=== PATIENT | male | born 1985 | race African-American/Black ===

== ENCOUNTER 2019-07-25 13:25 | Emergency (ER) | payer SELFPAY ==
[2019-07-25] MEDS ORDERED: diphenhydrAMINE 50 MG/ML VIAL ONE (15:05)
[2019-07-25] MEDS ORDERED: Ketorolac Tromethamine 30 MG/ML VIAL ONE (15:05)
[2019-07-25] MEDS ORDERED: Metoclopramide HCl 10 MG/2 ML VIAL ONE (15:09)
== END 2019-07-25 17:26 | disposition home or self-care (01) ==
LOC: ERS 13:25
DX: R51 Headache (principal); I10 Essential (primary) hypertension; F17.210 Nicotine dependence, cigarettes, uncomplicated
CPT/HCPCS: 96365; 96366; 96375; J1200; J1885; J2765

== ENCOUNTER 2019-09-24 03:50 | Emergency (ER) | payer SELFPAY ==
[2019-09-24] MEDS ORDERED: Dexamethasone 10 MG/ML VIAL ONE (03:59)
[2019-09-24] MEDS ORDERED: diphenhydrAMINE 25 MG CAP ONE (03:59)
== END 2019-09-24 05:12 | disposition home or self-care (01) ==
LOC: ERS 03:50
DX: S00.462A Insect bite (nonvenomous) of left ear, initial encounter (principal); S00.561A Insect bite (nonvenomous) of lip, initial encounter; W57.XXXA Bitten or stung by nonvenomous insect and other nonvenomous arthropods, initial encounter
CPT/HCPCS: J1100; Q0163

== ENCOUNTER 2019-12-14 09:26 | Emergency (ER) | payer SELFPAY ==
[2019-12-14] MEDS ORDERED: Acetaminophen 500 MG TAB ONE (09:42)
[2019-12-14] MEDS ORDERED: Metoclopramide HCl 10 MG/2 ML VIAL ONE (09:43)
[2019-12-14] MEDS ORDERED: diphenhydrAMINE 50 MG/ML VIAL ONE (09:43)
--- NOTE | 2019-12-14 10:42 | CT ---
CT BRAIN PERFORMED WITHOUT CONTRAST ENHANCEMENT: Date: 12/14/2019 HISTORY: Headache. COMPARISON: 06/01/16 study. FINDINGS: The ventricular and cisternal system is within normal limits. There are no signs of intracerebral hem orrhage or extra-axial fluid collections. The mastoid air cells and visualized sinuses are clear. IMPRESSION: No acute intracranial abnormalities. POS: [facility]
[2019-12-14] MEDS ORDERED: Magnesium 2 GM/50 ML BAG (IN WATER) ONE (12:22)
[2019-12-14] MEDS ORDERED: Ketorolac Tromethamine 30 MG/ML VIAL ONE (12:22)
== END 2019-12-14 13:30 | disposition home or self-care (01) ==
LOC: ERS 09:26
DX: R51 Headache (principal); F17.200 Nicotine dependence, unspecified, uncomplicated
CPT/HCPCS: 70450; 96365; 96366; 96367; 96375; J1200; J1885; J2765; J3475

== ENCOUNTER 2019-12-22 09:30 | Emergency (ER) | payer SELFPAY ==
[2019-12-22] MEDS ORDERED: Dexamethasone 4 mg/ml Vial ONE ×2 (10:18→10:19)
[2019-12-22] MEDS ORDERED: diphenhydrAMINE 50 MG/ML VIAL ONE (10:19)
[2019-12-22] MEDS ORDERED: Metoclopramide HCl 10 MG/2 ML VIAL ONE (10:19)
[2019-12-22] MEDS ORDERED: Acetaminophen 500 MG TAB ONE (11:53)
[2019-12-22] MEDS ORDERED: Ketorolac Tromethamine 30 MG/ML VIAL ONE (11:53)
[2019-12-22] MEDS ORDERED: Magnesium 2 GM/50 ML BAG (IN WATER) ONE (11:53)
== END 2019-12-22 13:08 | disposition home or self-care (01) ==
LOC: ERS 09:30
DX: R51 Headache (principal); I10 Essential (primary) hypertension
CPT/HCPCS: 96365; 96367; 96375; J1100; J1200; J1885; J2765; J3475

== ENCOUNTER 2020-07-03 13:39 | Emergency (ER) | payer SELFPAY | END 2020-07-03 14:57 | disposition home or self-care (01) | LOC: ERS 13:39 | DX: T78.40XA Allergy, unspecified, initial encounter (principal); I10 Essential (primary) hypertension; X58.XXXA Exposure to other specified factors, initial encounter | CPT/HCPCS: 99283 ==

== ENCOUNTER 2020-07-29 09:45 | Inpatient (IN) | payer OTHER, SELFPAY ==
[2020-07-29] MEDS ORDERED: Diazepam 10 MG/2 ML SYRINGE ONE (10:17)
[2020-07-29 10:44] LABS: #Basophils 0.1 thou/uL (0.0-0.2); #Monocytes 1.1 thou/uL (0.11-0.59); #Neutrophils 9.5 thou/uL (1.40-6.50); %Basophils 0.5 % (0.0-1.0); %Eosinophils 0.3 % (0.0-10.0); %Lymphocytes 15.6 % (21.0-51.0); %Monocytes 8.8 % (0.0-10.0); %Neutrophils 74.8 % (42.0-75.0); Hemoglobin 15.5 g/dL (14.0-18.0); Mean Corpuscular HGB CONC 33.9 g/dL (32.0-36.0); Mean Corpuscular Hemoglobin 31.3 pg (27.0-31.0); Mean Corpuscular Volume 92.4 fL (78.0-98.0); Mean Platelet Volume 8.3 fL (7.4-10.4); Platelet Count 231 thou/uL (130-400); RBC Distribution Width 12.5 % (11.5-14.5); Red Blood Cell (RBC) Count 4.95 mill/uL (4.70-6.10); White Blood Cell (WBC) Count 12.7 thou/uL (4.8-10.8)
[2020-07-29 10:54] LABS: ALT (SGPT) 25 U/L (8-55); AST (SGOT) 19 U/L (5-34); Albumin 4.7 g/dL (3.5-5.0); Alkaline Phosphatase 47 U/L (40-110); Anion Gap 23 mmol/L (10-20); BUN (Urea Nitrogen) 24 mg/dL (8.9-20.6); Bilirubin, Total 0.5 mg/dL (0.2-1.2); CK (CPK) 674 U/L (30-200); Calc. Creatinine Clearance 0 mL/min (70-130); Calcium 9.6 mg/dL (7.8-10.44); Carbon Dioxide 13 mmol/L (22-29); Chloride 107 mmol/L (98-107); Estimated GFR-MDRD 34; Globulin 2.7 g/dL (2.4-3.5); Glucose 112 mg/dL (70-105); Protein, Total 7.4 g/dL (6.0-8.3); Sodium 139 mmol/L (136-145)
[2020-07-29 11:31] LABS: Bilirubin Negative (Negative); Blood, Urine Trace (Negative); Clarity Turbid (Clear); Glucose, Urine (Dipstick) Normal (Negative); Ketone, Urine 10 mg/dL (Negative); Leukocyte 75 Leu/uL (Negative); Nitrite Negative (Negative); Protein, Urine (Dipstick) 50 mg/dL (Neg-Trace); RBC/HPF 0-3 HPF (0-3); Specific Gravity, Urine 1.028 (1.002-1.036); Squamous Epithelial 0-3 HPF (0-3); Urobilinogen Normal mg/dL (Less than 2); pH, Urine 5.5 (5.0-9.0)
[2020-07-29 11:35] LABS: Bacteria/HPF 1+ HPF (None Seen)
[2020-07-29 11:40] LABS: Band 1 % (5-11); Eosinophils 2 % (0-10); Lymphocytes 36 % (21-51); MDiff Complete? YES; Monocytes 9 % (0-10); Neutrophil 53 % (42-75); Nucleated RBC 1 % (0); RBC Morphology Normal
[2020-07-29] MEDS ORDERED: cefTRIAXone\\ROCEPHIN 1 GM VIAL ONE (11:54)
[2020-07-29] MEDS ORDERED: Ondansetron PF 4 MG/2 ML Vial ONE (12:20)
[2020-07-29 13:20] LABS: Lactic Acid 1.5 mmol/L (0.5-2.2)
[2020-07-29] MEDS ORDERED: Ondansetron PF 4 MG/2 ML Vial IVP PRN (14:37)
[2020-07-29] MEDS ORDERED: hydrALAZINE 20 MG/ML VIAL SLOW IVP PRN (14:37)
[2020-07-29] MEDS ORDERED: Acetaminophen 325 MG TAB PO PRN ×2 (14:37)
[2020-07-29] MEDS ORDERED: Ondansetron ODT 4 MG TAB SL PRN (14:37)
[2020-07-29] MEDS ORDERED: Lactated Ringer's 1,000 ML IV SCH (14:45)
[2020-07-29] MEDS: Lactated Ringer's 1,000 ML IV SCH ×2 (15:23→23:09)
[2020-07-29 15:31] VITALS: BMI 35.6
[2020-07-29 16:43] LABS: SARS-CoV-2 MS2 Positive; SARS-CoV-2 N Gene Negative; SARS-CoV-2 S Gene Negative; SARS-CoV-2 by NAA Not Detected (NotDetected); SARS-CoV-2 orf1ab Negative
[2020-07-29 18:47] LABS: Creatinine, Urine 145.33 mg/dL (63-166)
--- NOTE | 2020-07-29 19:51 | HP ---
PRIMARY CARE PHYSICIAN: The patient currently does not have a primary care physician. CHIEF COMPLAINT: "I was cramping in both of my legs and diaphoretic." HISTORY OF PRESENT ILLNESS: Mr. Nelson is a pleasant 35-year-old gentleman who has a history of hypertension. He admits that he has never followed up regularly with regard to his blood pressure. He says that he did not trust the medications that were prescribed to him. Nevertheless, in the last couple of days, he has been noticing cramping in both of his legs and then it started progressing from his legs to encompass his entire body, and when he laid down, he also noted some cramping around his chest area. He noticed some sharp pains as well. He felt like he was keeping up with his fluid intake. 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 He was working this morning and then went on break, when a state highway police officer noted that he appeared to be diaphoretic and looked ill and called an ambulance. He was brought to the hospital and was found to have an elevated creatinine and BUN, and he is being admitted for acute kidney injury, presumed secondary to dehydration. The patient denies any nausea, vomiting, or diarrhea. He denies any fever or chills. He says he had an episode where he "got dehydrated before about a year ago." He says at that time he was having lots of headaches. His girlfriend who is at the bedside says that it seems to happen when his blood pressure is high and it has been noted that his blood pressure has been high on several occasions. Otherwise, the patient has no other complaints. REVIEW OF SYSTEMS: All systems were reviewed and are negative except for that mentioned in the history of present illness. PAST MEDICAL HISTORY: Significant for hypertension as well as anxiety. PAST SURGICAL HISTORY: Negative. ALLERGIES: NO KNOWN DRUG ALLERGIES. SOCIAL HISTORY: He is engaged. He has no children. He says he used to smoke about a pack a day, now he says he only smokes a couple of cigarettes every now and then. He denies any alcohol use. He works in an in a warehouse as previously mentioned. MEDICATIONS: None. FAMILY HISTORY: Significant for hypertension in his father as well as diabetes runs in the family as well. PHYSICAL EXAMINATION: GENERAL: He is alert and oriented. He appears to be in no acute distress. He is well developed and well nourished. VITAL SIGNS: Blood pressure was 128/86, heart rate 76, respiratory rate of 16, and he is afebrile. HEENT: Pupils are equal, round, and reactive. Extraocular muscles are intact. His sclerae anicteric. Throat, no erythema and no exudates. NECK: No adenopathy. No bruits. LUNGS: Clear to auscultation. There is no wheezing, no rales, and no rhonchi. CARDIOVASCULAR: He has a normal S1 and S2. No S3 or S4. No murmurs, clicks, or rubs. ABDOMEN: Soft, nontender, and nondistended. Positive for bowel sounds. There is no rebound, no guarding, no organomegaly. EXTREMITIES: There is no clubbing or cyanosis. No edema. No calf tenderness. No joint effusions. NEUROLOGIC: The exam is nonfocal. LABORATORY RESULTS: White blood cell count is 12.7, hemoglobin 15.5, hematocrit is 45.8, and platelet count is 231. Sodium 139, potassium 4.0, chloride is 107, CO2 is 13, BUN of 24, and creatinine 2.62. Urinalysis is noted for 1+ bacteria and greater than 50 hyaline cast. ASSESSMENT AND PLAN: 1. This is a pleasant 35-year-old gentleman who presents to the emergency room with what appears to be acute kidney injury due to volume depletion. However, there is some concern that he could have chronic kidney disease due to uncontrolled hypertension as well. It is noted that several years ago his creatinine was elevated at 1.49 back in 2016, and his BUN to creatinine ratio does not suggest a prerenal picture. However, hopefully, this is due to volume depletion. The plan will be to place him on the medical floor. Start him on IV hydration and reassess his creatinine in the a.m. We will also go ahead and get urine electrolytes to calculate a fractional excretion of sodium and renal ultrasound as well. 2. Hypertension. The patient stated he had been prescribed clonidine in the past. We will consider a neutral medications, such as amlodipine or carvedilol, given he seems to be prone to dehydration, and therefore, we will hold off on any CICI inhibitors or angiotensin receptor blockers at this time. He has been counseled on the need for compliance with blood pressure medications and the dangers of uncontrolled hypertension. Job ID: [id number]
--- NOTE | 2020-07-30 08:16 | ULT ---
Renal sonogram HISTORY: Acute renal insufficiency. FINDINGS: Right kidney is 10.0 cm length and the left is 10.4 cm. Each has a normal appearance without mass, st one, or hydronephrosis. Urinary bladder is incompletely distended. IMPRESSION : No abnormalities are demonstrated.
[2020-07-30 08:40] LABS: Anion Gap 14 mmol/L (10-20); BUN (Urea Nitrogen) 19 mg/dL (8.9-20.6); Calc. Creatinine Clearance 114 mL/min (70-130); Calcium 8.9 mg/dL (7.8-10.44); Carbon Dioxide 21 mmol/L (22-29); Chloride 108 mmol/L (98-107); Estimated GFR-MDRD 64; Glucose 110 mg/dL (70-105); Potassium 3.6 mmol/L (3.5-5.1); Sodium 139 mmol/L (136-145)
[2020-07-30] MEDS ORDERED: Famotidine 20 MG TAB PO SCH (09:00)
[2020-07-30] MEDS: Lactated Ringer's 1,000 ML IV SCH (09:09)
[2020-07-30 09:45] LABS: #Basophils 0.1 thou/uL (0.0-0.2); #Eosinphils 0.3 thou/uL (0.0-0.7); #Lymphocytes 4.4 thou/uL (1.20-3.40); #Monocytes 0.9 thou/uL (0.11-0.59); #Neutrophils 4.5 thou/uL (1.40-6.50); %Basophils 0.8 % (0.0-1.0); %Eosinophils 2.7 % (0.0-10.0); %Lymphocytes 43.1 % (21.0-51.0); %Monocytes 8.8 % (0.0-10.0); %Neutrophils 44.6 % (42.0-75.0); Mean Corpuscular HGB CONC 32.5 g/dL (32.0-36.0); Mean Corpuscular Hemoglobin 30.6 pg (27.0-31.0); Mean Platelet Volume 8.7 fL (7.4-10.4); Platelet Count 205 thou/uL (130-400); RBC Distribution Width 12.4 % (11.5-14.5); Red Blood Cell (RBC) Count 4.57 mill/uL (4.70-6.10); White Blood Cell (WBC) Count 10.1 thou/uL (4.8-10.8)
[2020-07-30 11:23] VITALS: BP 116/82; TEMP 97.7
--- NOTE | 2020-07-30 21:54 | DIS ---
DATE OF ADMISSION: 07/29/2020 DATE OF DISCHARGE: 07/30/2020 PRIMARY CARE PHYSICIAN: The patient currently does not have a primary care physician. DISCHARGE DISPOSITION: Home. DISCHARGE DIAGNOSES: 1. Acute on chronic kidney injury. 2. Hypertension, very labile and uncontrolled. DISCHARGE MEDICATIONS: Carvedilol 3.125 mg p.o. b.i.d. IMAGING: The patient had a renal ultrasound showing normal sized kidneys, no mass or hydronephrosis. CODE STATUS: Full code. ALLERGIES: NO KNOWN DRUG ALLERGIES. HOSPITAL COURSE: Mr. Nelson is a pleasant 35-year-old gentleman, who presented to the emergency room after having cramping in his legs and was diaphoretic. He was evaluated in the ER and found to be in acute kidney injury. It was felt that this was likely as a result of volume depletion. He improved with IV hydration. I reviewed his chart and saw that he had been in the hospital back in May of 2016 and at that time, his creatinine was 1.49 and this is likely his baseline. He was told that he has some chronic kidney disease and should follow up with a it analyst once he establishes a primary care physician as this may not be related to dehydration, may not be even related to hypertension and would need close followup. He tells me that his grandmother was on dialysis and this may be some hereditary form of renal insufficiency. At the time of discharge, his blood pressure was actually fairly well controlled at 123/89 without any additional medication, but we will place him on a low- dose carvedilol in the event that he has and he has been instructed to monitor his blood pressures at home and record. Job ID: [id number]
--- NOTE | 2020-08-01 09:17 | PQF ---
CLINICAL DOCUMENTATION CLARIFICATION FORM: Dear : Andres Sosa Date / Time: 08/01/2020 Please exercise your independent, professional judgment in responding to the clarification form. Clinical indicators are provided on the bottom of this form for your review Please check appropriate box(es) to clarify if the following diagnosis has been ruled in our ruled out: Urinary tract infection [ ] Ruled in diagnosis [ ] Continue to treat [ ] Resolved [ ] Ruled out diagnosis [ ] Improving [ ] Cannot rule out diagnosis [ X ] Other diagnosis pyuria [ ] Unable to determine In addition, please specify: Present on Admission (POA): [ X ] Yes [ ] No [ ] Unable to determine To be completed by CDI/Coding staff for physician review: Present Clinical Indicators - Signs / Symptoms / Labs Results and Location in Medical Record [ x ] His urinalysis surprisingly demonstrated a possible urinary tract infection, although patient was not having symptoms, we will treat him with Rocephin. Patient had urine cultures and blood cultures ED Provider notes [ x ] WBC is 12.7 on 07/29. Lactic acid is 6.4 on 07/29 Laboratory Present Risk Factors Results and Location in Medical Record [ x ] Acute kidney injury, dehydration and hypertension H&P Present Treatments Results and Location in Medical Record [ x ] IV Rocephin 07/29 Medications [ x ] Urine culture 07/29 Microbiology CDS/[employer]pper Signature: [facility] Phone #: Date/Time: 08/01/2020 This is a permanent part of the Medical Record [facility]
--- NOTE | 2020-08-02 13:40 | EKG ---
Test Reason : Blood Pressure : / mmHG Vent. Rate : 103 BPM Atrial Rate : 103 BPM P-R Int : 104 ms QRS Dur : 086 ms QT Int : 366 ms P-R-T Axes : -05 069 012 degrees QTc Int : 479 ms Sinus tachycardia with short MA Otherwise normal ECG Confirmed by LOLIS MORRISON DO ([id number]), map editor NOVA LUCAS ([id number]) on 08/02/2020 1:40:14 PM Referred By: Confirmed By:LOLIS MORRISON DO
== END 2020-07-30 13:13 | disposition home or self-care (01) | DRG 684 ==
LOC: ERS 09:45 → T4-B 11:57
PROVIDERS: ADMIT Internal Medicine; ATTEND Internal Medicine
DX: N17.9 Acute kidney failure, unspecified (principal); Z20.828 Contact with and (suspected) exposure to other viral communicable diseases; F17.210 Nicotine dependence, cigarettes, uncomplicated; E86.0 Dehydration; I12.9 Hypertensive chronic kidney disease with stage 1 through stage 4 chronic kidney disease, or unspecified chronic kidney disease; N18.9 Chronic kidney disease, unspecified; R82.81 Pyuria
CPT/HCPCS: 36415; 76770; 80048; 80053; 81003; 81015; 82550; 82570; 83605; 84300; 84484; 84540; 85025; 87040; 87086; 87635; 93005; 96361; 96365; 96375; J0696; J2405; J3360; U0003

== ENCOUNTER 2020-09-18 03:49 | Emergency (ER) | payer SELFPAY ==
[2020-09-18] MEDS ORDERED: Acetaminophen 500 MG TAB ONE (04:08)
[2020-09-18 04:44] LABS: #Basophils 0.1 thou/uL (0.0-0.2); #Eosinphils 0.2 thou/uL (0.0-0.7); #Lymphocytes 3.5 thou/uL (1.20-3.40); #Monocytes 0.7 thou/uL (0.11-0.59); #Neutrophils 2.7 thou/uL (1.40-6.50); %Basophils 1.6 % (0.0-1.0); %Eosinophils 2.3 % (0.0-10.0); %Lymphocytes 48.5 % (21.0-51.0); %Monocytes 10.1 % (0.0-10.0); %Neutrophils 37.6 % (42.0-75.0); Hemoglobin 15.5 g/dL (14.0-18.0); Mean Corpuscular HGB CONC 34.7 g/dL (32.0-36.0); Mean Corpuscular Hemoglobin 31.7 pg (27.0-31.0); Mean Corpuscular Volume 91.4 fL (78.0-98.0); Mean Platelet Volume 8.7 fL (7.4-10.4); Platelet Count 250 thou/uL (130-400); RBC Distribution Width 11.9 % (11.5-14.5); Red Blood Cell (RBC) Count 4.88 mill/uL (4.70-6.10); White Blood Cell (WBC) Count 7.3 thou/uL (4.8-10.8)
[2020-09-18 05:09] LABS: ALT (SGPT) 11 U/L (8-55); AST (SGOT) 15 U/L (5-34); Albumin 4.5 g/dL (3.5-5.0); Alkaline Phosphatase 43 U/L (40-110); Anion Gap 14 mmol/L (10-20); BUN (Urea Nitrogen) 16 mg/dL (8.9-20.6); Bilirubin, Total 0.7 mg/dL (0.2-1.2); CK (CPK) 410 U/L (30-200); Calc. Creatinine Clearance 0 mL/min (70-130); Calcium 9.6 mg/dL (7.8-10.44); Carbon Dioxide 22 mmol/L (22-29); Chloride 107 mmol/L (98-107); Estimated GFR-MDRD 81; Globulin 2.8 g/dL (2.4-3.5); Glucose 110 mg/dL (70-105); Magnesium 1.9 mg/dL (1.6-2.6); Potassium 3.3 mmol/L (3.5-5.1); Protein, Total 7.3 g/dL (6.0-8.3); Sodium 140 mmol/L (136-145)
[2020-09-18] MEDS ORDERED: Ketorolac Tromethamine 30 MG/ML VIAL ONE (05:26)
== END 2020-09-18 06:00 | disposition home or self-care (01) ==
LOC: ERS 03:49
DX: R25.2 Cramp and spasm (principal); R51.9 Headache, unspecified; I10 Essential (primary) hypertension; F17.210 Nicotine dependence, cigarettes, uncomplicated
CPT/HCPCS: 80053; 82550; 83735; 85025; 96374; J1885

== ENCOUNTER 2020-10-23 10:59 | Emergency (ER) | payer SELFPAY ==
--- NOTE | 2020-10-23 11:48 | RAD ---
RIGHT ANKLE 3 VIEWS: HISTORY: Swelling for 1 week without injury. FINDINGS: Minimal anterior and medial soft tissue swelling. No fracture or dislocation. IMPRESSION: Soft tissue swelling without fracture or dislocation. POS: OFF
== END 2020-10-23 12:35 | disposition home or self-care (01) ==
LOC: ERS 10:59
DX: M72.2 Plantar fascial fibromatosis (principal); I10 Essential (primary) hypertension; F17.210 Nicotine dependence, cigarettes, uncomplicated; Z79.899 Other long term (current) drug therapy

== ENCOUNTER 2020-11-11 06:41 | Emergency (ER) | payer SELFPAY | END 2020-11-11 07:46 | disposition home or self-care (01) | LOC: ERS 06:41 | DX: M72.2 Plantar fascial fibromatosis (principal); I10 Essential (primary) hypertension; F17.210 Nicotine dependence, cigarettes, uncomplicated; Z79.899 Other long term (current) drug therapy | CPT/HCPCS: 99283 ==

== ENCOUNTER 2020-12-09 11:21 | Emergency (ER) | payer SELFPAY ==
[2020-12-09 13:36] LABS: Anion Gap 12 mmol/L (10-20); BUN (Urea Nitrogen) 14 mg/dL (8.9-20.6); CK (CPK) 312 U/L (30-200); Calc. Creatinine Clearance 0 mL/min (70-130); Carbon Dioxide 24 mmol/L (22-29); Chloride 107 mmol/L (98-107); Glucose 83 mg/dL (70-105); Potassium 3.8 mmol/L (3.5-5.1); Sodium 139 mmol/L (136-145)
== END 2020-12-09 14:05 | disposition home or self-care (01) ==
LOC: ERS 11:21
DX: M25.511 Pain in right shoulder (principal); M54.9 Dorsalgia, unspecified; I10 Essential (primary) hypertension; F17.210 Nicotine dependence, cigarettes, uncomplicated; X50.0XXA Overexertion from strenuous movement or load, initial encounter
CPT/HCPCS: 36415; 80048; 82550; 99283

== ENCOUNTER 2021-01-09 12:13 | Emergency (ER) | payer SELFPAY ==
[2021-01-09 14:33] LABS: Bacteria/HPF None Seen HPF (None Seen); Bilirubin Negative (Negative); Blood, Urine Negative (Negative); Clarity Clear (Clear); Glucose, Urine (Dipstick) Normal (Negative); Ketone, Urine Negative (Negative); Leukocyte 75 Leu/uL (Negative); Nitrite Negative (Negative); Protein, Urine (Dipstick) Negative (Neg-Trace); RBC/HPF 0-3 HPF (0-3); Specific Gravity, Urine 1.027 (1.002-1.036); Squamous Epithelial 0-3 HPF (0-3); WBC/HPF 21-50 HPF (0-3)
== END 2021-01-09 15:08 | disposition home or self-care (01) ==
LOC: ERS 12:13
DX: N41.0 Acute prostatitis (principal); N39.0 Urinary tract infection, site not specified; I10 Essential (primary) hypertension; F17.210 Nicotine dependence, cigarettes, uncomplicated
CPT/HCPCS: 81003; 81015; 99283

== ENCOUNTER 2021-01-23 09:29 | Emergency (ER) | payer SELFPAY ==
[2021-01-23] MEDS ORDERED: Acetaminophen 500 MG TAB ONE (09:57)
[2021-01-23] MEDS ORDERED: Magnesium 2 GM/50 ML BAG (IN WATER) ONE (09:57)
[2021-01-23 10:16] LABS: #Eosinphils 0.1 thou/uL (0.0-0.7); #Lymphocytes 3.2 thou/uL (1.20-3.40); #Monocytes 0.5 thou/uL (0.11-0.59); #Neutrophils 3.8 thou/uL (1.40-6.50); %Basophils 0.4 % (0.0-1.0); %Eosinophils 1.8 % (0.0-10.0); %Monocytes 7.1 % (0.0-10.0); %Neutrophils 49.6 % (42.0-75.0); Hemoglobin 15.1 g/dL (14.0-18.0); Mean Corpuscular HGB CONC 34.9 g/dL (32.0-36.0); Mean Corpuscular Hemoglobin 31.8 pg (27.0-31.0); Mean Corpuscular Volume 91.2 fL (78.0-98.0); Mean Platelet Volume 8.6 fL (7.4-10.4); Platelet Count 211 thou/uL (130-400); RBC Distribution Width 12.1 % (11.5-14.5); Red Blood Cell (RBC) Count 4.75 mill/uL (4.70-6.10); White Blood Cell (WBC) Count 7.7 thou/uL (4.8-10.8)
[2021-01-23 10:36] LABS: ALT (SGPT) 10 U/L (8-55); AST (SGOT) 12 U/L (5-34); Albumin 4.1 g/dL (3.5-5.0); Alkaline Phosphatase 54 U/L (40-110); Anion Gap 15 mmol/L (10-20); BUN (Urea Nitrogen) 17 mg/dL (8.9-20.6); Bilirubin, Total 0.7 mg/dL (0.2-1.2); CK (CPK) 211 U/L (30-200); Calc. Creatinine Clearance 0 mL/min (70-130); Carbon Dioxide 18 mmol/L (22-29); Chloride 109 mmol/L (98-107); Globulin 2.8 g/dL (2.4-3.5); Glucose 102 mg/dL (70-105); Magnesium 1.6 mg/dL (1.6-2.6); Potassium 3.6 mmol/L (3.5-5.1); Protein, Total 6.9 g/dL (6.0-8.3); Sodium 138 mmol/L (136-145)
== END 2021-01-23 12:07 | disposition home or self-care (01) ==
LOC: ERS 09:29
DX: R51.9 Headache, unspecified (principal); I10 Essential (primary) hypertension; F17.210 Nicotine dependence, cigarettes, uncomplicated; Z79.899 Other long term (current) drug therapy
CPT/HCPCS: 36415; 71045; 80053; 82550; 83735; 84484; 85025; 93005; 96365; J3475

== ENCOUNTER 2021-03-18 21:02 | Emergency (ER) | payer SELFPAY ==
[2021-03-18] MEDS ORDERED: Ketorolac Tromethamine 30 MG/ML VIAL ONE (22:46)
== END 2021-03-18 23:10 | disposition home or self-care (01) ==
LOC: ERS 21:02
DX: S63.501A Unspecified sprain of right wrist, initial encounter (principal); I10 Essential (primary) hypertension; F17.210 Nicotine dependence, cigarettes, uncomplicated; X50.0XXA Overexertion from strenuous movement or load, initial encounter
CPT/HCPCS: 96372; J1885

== ENCOUNTER 2021-05-15 12:59 | Emergency (ER) | payer SELFPAY | END 2021-05-15 14:33 | disposition home or self-care (01) | LOC: ERS 12:59 | DX: I10 Essential (primary) hypertension (principal); R51.9 Headache, unspecified; R29.700 NIHSS score 0; F17.210 Nicotine dependence, cigarettes, uncomplicated; Z79.899 Other long term (current) drug therapy | CPT/HCPCS: 99283 ==